=== PATIENT | female | born 1950 | race Caucasian/White ===

== ENCOUNTER 2023-03-05 07:40 | Day surgery (SDC) | payer OTHER, MEDICARE ==
[2023-03-03 15:52] VITALS: BMI 23.6
[2023-03-05 09:40] VITALS: RESP 20; TEMP 97.8
[2023-03-05 09:44] VITALS: BP 110/60; PULSE 96
== END 2023-03-05 09:45 | disposition home or self-care (01) ==
LOC: FASU-ENDO 07:40
PROVIDERS: ATTEND Internal Medicine Gastroenterology
PROC: 0DBN8ZX Excision of Sigmoid Colon, Via Natural or Artificial Opening Endoscopic, Diagnostic (ICD-10-PCS; principal; 2023-03-05 08:43)
DX: Z12.11 Encounter for screening for malignant neoplasm of colon (principal); D12.5 Benign neoplasm of sigmoid colon; Z86.010 Personal history of colon polyps
CPT/HCPCS: 88305-TC

== ENCOUNTER 2023-12-30 14:56 | Observation (INO) | payer OTHER, MEDICARE ==
[2023-12-30 15:26] VITALS: BMI 23.6
[2023-12-30] MEDS ORDERED: ACETAMINOPHEN 1000 MG/100 ML BAG IVPB PRN (15:49)
[2023-12-30] MEDS ORDERED: DOXYCYCLINE HYCLATE 100 MG VIAL ONE (15:59)
[2023-12-30] MEDS ORDERED: cefTRIAXone SODIUM 1 GM VIAL ONE (15:59)
[2023-12-30] MEDS: CEFTRIAXONE 1,000 MG in DEXTROSE 5%-WATER - 50 ML IVPB ONE (17:06)
[2023-12-30] MEDS: DOXYCYCLINE INJECTION 100 MG in DEXTROSE 5%-WATER 100 ML IVPB ONE (17:07)
[2023-12-30 18:42] VITALS: RESP 18
[2023-12-30] MEDS: DOXYCYCLINE INJECTION 100 MG in DEXTROSE 5%-WATER 100 ML IVPB SCH (21:51)
[2023-12-30] MEDS: ZOLPIDEM TARTRATE 5 MG TABLET PO PRN (23:00)
[2023-12-31 08:53] LABS: ALBUMIN 3.7 g/dl (3.4-5.0); BILIRUBIN,TOTAL 0.6 mg/dl (0.2-1); CALCIUM 9.2 mg/dl (8.5-10.1); CREATININE 0.7 mg/dl (0.6-1.3); POTASSIUM 4.1 mmol/L (3.5-5.1); TOT PROT 6.5 g/dl (6.4-8.2)
[2023-12-31 10:15] LABS: HEMATOCRIT 33.4 % (32.4-45.2); MCH 29.6 pg (25.7-33.7); MCHC 32.8 g/dl (32.0-36.0); MEAN CELL VOLUME 90.4 fl (80-96); MEAN PLT VOLUME 9.2 fl (7.5-11.1); PLATELET COUNT 106.1 10^3/uL (134-434); RDW 15.1 % (11.6-15.6); WHITE BLOOD COUNT 4.2 10^3/uL (4.0-10.8)
[2023-12-31] MEDS: CEFTRIAXONE 1 GM in DEXTROSE 5%-WATER - 50 ML IVPB SCH (10:24)
[2023-12-31 10:47] LABS: PLATELET ESTIMATE DECREASED
[2023-12-31 14:28] VITALS: BP 112/71; PULSE 61; TEMP 98.4
== END 2023-12-31 18:19 | disposition home or self-care (01) ==
LOC: FER 14:56 → FM/S 15:03
DX: D70.9 Neutropenia, unspecified (principal); D69.6 Thrombocytopenia, unspecified; E78.5 Hyperlipidemia, unspecified; M19.90 Unspecified osteoarthritis, unspecified site; K21.9 Gastro-esophageal reflux disease without esophagitis; R50.9 Fever, unspecified; G47.00 Insomnia, unspecified; R53.1 Weakness; Z91.89 Other specified personal risk factors, not elsewhere classified; Z88.2 Allergy status to sulfonamides; Z87.891 Personal history of nicotine dependence
CPT/HCPCS: 0241U-QW; 36415; 71046-TC-FY; 80053; 83010; 83615; 84484; 85027; 85045; 85384; 86308; 86666; 86753; 86788; 86789; 86850; 86900; 86901; 87040; 87086; 87207; 87798; 93005; 93010; 96365; 96366; 99285-25; G0378